=== PATIENT | female | born 1940 | race Caucasian/White ===

== ENCOUNTER 2021-09-07 20:35 | Inpatient (IN) ==
[2021-09-07] MEDS ORDERED: Ondansetron ODT 4 MG TAB.RAPDIS SL PRN (23:34)
[2021-09-07] MEDS ORDERED: Naloxone 0.4 MG/ML INJ IVP PRN (23:34)
[2021-09-07] MEDS ORDERED: Acetaminophen 325 MG TABLET PO PRN (23:34)
[2021-09-08] MEDS ORDERED: 0.9 % Sodium Chloride 1,000 ML IVC SCH (00:45)
[2021-09-08] MEDS ORDERED: Naloxone 0.4 MG/ML INJ IVP PRN ×3 (01:00→15:24)
[2021-09-08 02:06] LABS: Hematocrit 31.3 % (35.3-44.9)
[2021-09-08 02:08] LABS: Hemoglobin 9.5 g/dL (11.5-15.4); Immature Platelets 3.4 % (1.1-6.1); Mean Corpuscular HGB Conc 30.4 g/dL (31.6-35.5); Mean Corpuscular Volume 98.7 fL (83.0-100.0); Mean Platelet Volume 10.2 fL (9.4-12.4); Red Blood Count 3.17 M/mcL (3.82-4.97); Red Cell Distribution Width 14.9 % (11.5-14.5)
[2021-09-08 02:23] LABS: Albumin 3.3 g/dL (3.5-5.7); Albumin/Globulin Ratio 1.2 (1.1-2.2); Bilirubin,Total 0.4 mg/dL (0.3-1.0); Calcium 9.5 mg/dL (8.6-10.3); Globulin 2.7 g/dL (2.4-3.5); Magnesium 2.2 mg/dL (1.6-2.6); Phosphorous 3.3 mg/dL (2.7-4.5); Potassium 4.3 mEq/L (3.5-5.1)
[2021-09-08 02:26] LABS: INR 1.4; Prothrombin Time 15.5 Seconds (9.4-12.1)
[2021-09-08] MEDS: 0.9 % Sodium Chloride 1,000 ML IVC SCH ×4 (03:23→23:50)
[2021-09-08] MEDS ORDERED: cefTRIAXone 1,000 MG in 0.9 % Sodium Chloride 10 ML IVP SCH (09:00)
[2021-09-08] MEDS ORDERED: *HR* FentaNYL (PF) 100 MCG/2 ML VIAL ONE (10:49)
[2021-09-08] MEDS ORDERED: Ondansetron 4 MG/2 ML VIAL ONE (10:49)
[2021-09-08] MEDS ORDERED: Lidocaine -MPF 2% 5 ML VIAL ONE (10:49)
[2021-09-08] MEDS ORDERED: *HR* Propofol 200 MG/20 ML VIAL IVP ONE (10:49)
[2021-09-08] MEDS ORDERED: Lidocaine Jelly 11 ml Syringe ONE (11:00)
[2021-09-08] MEDS ORDERED: EPHEDrine 50 MG/ML VIAL ONE (12:04)
[2021-09-08] MEDS ORDERED: Acetaminophen 325 MG TABLET PO PRN (15:24)
[2021-09-08] MEDS ORDERED: Ondansetron ODT 4 MG TAB.RAPDIS SL PRN (15:24)
[2021-09-09 07:44] LABS: Mean Corpuscular Volume 97.3 fL (83.0-100.0)
[2021-09-09 07:46] LABS: Hematocrit 29.2 % (35.3-44.9); Hemoglobin 9.2 g/dL (11.5-15.4); Immature Platelets 3.9 % (1.1-6.1); Mean Corpuscular HGB Conc 31.5 g/dL (31.6-35.5); Mean Corpuscular Hemoglobin 30.7 pg (28.0-33.3); Mean Platelet Volume 10.8 fL (9.4-12.4); Red Cell Distribution Width 15.2 % (11.5-14.5); White Blood Count 15.3 K/mcL (4.3-11.1)
[2021-09-09 07:54] LABS: BUN/Creatinine Ratio 42 (6-26); Blood Urea Nitrogen 41 mg/dL (8-23); Calcium 9.4 mg/dL (8.6-10.3); Carbon Dioxide 19 mEq/L (23-29); Chloride 112 mEq/L (98-107); Glucose 115 mg/dL (70-105); Osmolality,Calculated 297 (280-300); Potassium 4.3 mEq/L (3.5-5.1); Sodium 138 mEq/L (136-145); eGFR For African Americans > 60 (> 60); eGFR For Non-African Americans 55 (> 60)
[2021-09-09] MEDS: 0.9 % Sodium Chloride 1,000 ML IVC SCH (08:33)
[2021-09-09] MEDS: cefTRIAXone 1,000 MG in 0.9 % Sodium Chloride 10 ML IVP SCH (08:34)
[2021-09-09] MEDS ORDERED: 0.9 % Sodium Chloride 1,000 ML IVC SCH (16:22)
[2021-09-10] MEDS: cefTRIAXone 1,000 MG in 0.9 % Sodium Chloride 10 ML IVP SCH (09:23)
[2021-09-10 09:27] LABS: Basophils # 0.1 K/mcL (0.0-0.2); Basophils % 0.6 %; Eosinophils % 0.2 %; Hematocrit 31.4 % (35.3-44.9); Hemoglobin 10.1 g/dL (11.5-15.4); Immature Granulocytes % 3.8 % (0-4); Lymphocytes # 0.6 K/mcL (0.6-4.6); Lymphocytes % 2.9 %; Mean Corpuscular HGB Conc 32.2 g/dL (31.6-35.5); Mean Corpuscular Hemoglobin 30.6 pg (28.0-33.3); Mean Corpuscular Volume 95.2 fL (83.0-100.0); Mean Platelet Volume 10.7 fL (9.4-12.4); Monocytes # 0.8 K/mcL (0.0-1.3); Monocytes % 4.4 %; Neutrophils # 16.8 K/mcL (1.6-8.9); Platelet Count 142 K/mcL (140-400); Red Cell Distribution Width 15.2 % (11.5-14.5); Segmented Neutrophils % 88.1 %
[2021-09-10 09:46] LABS: BUN/Creatinine Ratio 49 (6-26); Blood Urea Nitrogen 37 mg/dL (8-23); Calcium 9.6 mg/dL (8.6-10.3); Carbon Dioxide 20 mEq/L (23-29); Chloride 113 mEq/L (98-107); Glucose 119 mg/dL (70-105); Osmolality,Calculated 298 (280-300); Potassium 4.2 mEq/L (3.5-5.1); Sodium 139 mEq/L (136-145); eGFR For African Americans > 60 (> 60); eGFR For Non-African Americans > 60 (> 60)
[2021-09-10] MEDS ORDERED: *HR* Enoxaparin 40 MG/0.4 ML SYRINGE SQ SCH (11:21)
[2021-09-10] MEDS ORDERED: Venlafaxine XR (24 HR) 75 MG CAP.ER.24H PO SCH (11:30)
[2021-09-10] MEDS ORDERED: Venlafaxine XR (24 HR) 150 MG CAP.ER.24H PO SCH (11:30)
[2021-09-10 11:40] VITALS: BP 154/83; PULSE 94; TEMP 97.4; O2SAT 95
== END 2021-09-10 14:26 | disposition home or self-care (01) | DRG 853 ==
LOC: 2ANU → SUATTDRO 23:08
PROVIDERS: ADMIT Internal Medicine; ATTEND Family Medicine